=== PATIENT | male | born 1985 | race Caucasian/White ===

== ENCOUNTER 2021-06-17 21:15 | Emergency (ER) | payer OTHER ==
[~2021-06-17] VITALS: Ht 172.7 cm; Wt 81.7 kg
--- NOTE | ~2021-06-17 | EMS ---
[address] [address] EMS Patient Care Report Name: REYNALDO CRUZ Room #: DEP DIANNE Casiano#: [id number] Admission: 06/17/21 Attend Phys: Discharge: 06/18/21 Date of : 85 Report #: [id number] THIS REPORT FOR: //name// Report Transmitted: 06/19/2021 10:16 EMS Care Summary [place], [place]/[facility] Incident [id number] @ 06/17/2021 20:40 Incident Location [address] [place] [address] [place] [address] Patient REYNALDO CRUZ Male, 32 Years 1989-01-20 Patient Address [address] [place] [address] [place] [address] Patient History Asthma,Alcohol Abuse, Patient Allergies No known allergies, Patient Medications None Reported, Chief Complaint AMS Disposition Transported No Lights/[place] Reason Overdose/Poisoning/Ingestion Transported To [facility] [place] Narrative M41 DISPATCHED TO AN OVERDOSE. M41 AOS AND FOUND A MALE PT LYING ON THE FLOOR IN THE KITCHEN. PT WAS FOUND BY HIS WHEN SHE CAME HOME FROM WORK. SHE STATES THAT HE DOES HAVE A DRINKING [address] [address] EMS Patient Care Report Name: REYNALDO CRUZ Room #: DEP DIANNE Casiano#: [id number] Admission: 06/17/21 Attend Phys: Discharge: 06/18/21 Date of : 85 Report #: [id number] PROBLEM BUT HIDES HIS DRINKING, SHE STATES THAT HE ALSO USES WEED BUT DOES NOT THINK THAT HE USES ANY OTHER DRUGS. PT WAS AROUSED AND BECAME ALERT BUT DID NOT ANSWER ANY QUESTIONS AND REPLIES TO ALL QUESTIONS WITH WAS IS UP. PT DOES HAVE MUCUS COMING FROM HIS MOUTH. PT ATTEMPTS TO SPIT UP THE MUCUS BUT IS UNSUCCESSFUL. PT IS ALERT ENOUGH TO MAINTAIN HIS OWN AIRWAY. HX, ALLERGIES, AND MEDS OBTAINED FROM . PT PLACED ON A MEGAMOVER AND MOVED TO THE COT. VITALS OBTAINED. BGA OBTAINED. 4 LEAD OBTAINED. M[address] [facility]. EN ROUTE PT CONDITION REMAINED STABLE HOWEVER HE DOES NOT FOLLOW ANY OF MY REQUESTS PT PLAYS WITH HIS GENITALS AND DROPS HIS EMESIS BAG MULTIPLE TIMES IN THE AMBULANCE. AT [facility] PT URINATED ALL OVER THE COT AND THE FLOOR WITH NO WARNING. REPORT GIVEN TO RN [facility]. SIGNATURES OBTAINED. I SIGNED FOR PT DUE TO AMS. TRANSFER OF CARE TOOK PLACE. M41 IN SERVICE. MAURA VIERA FLIGHT TECHNICIAN Initial Vitals @20:54P: 97,R: 18,BP: 151/99,Pain: 0/10,GCS: 13,CO: 3,SpO2: 96,Revised Trauma: 12, @20:52P: 103,R: 18,BP: 139/94,Pain: 0/10,GCS: 13,Glucose: 115,SpO2: 94,Revised Trauma: 12,MN Suspected: false Assessments @20:50MENTAL:Confused,Other,SKIN:HEENT:Head/Face: No Abnormalities,Neck/Airway: No Abnormalities,LUNG SOUNDS:General: Vomiting,ABDOMEN:General: Vomiting,PELVIS//GI:No Abnormalities,EXTREMITIES:Capillary Refill: Right Upper: < 2 Sec,Left Arm: No Abnormalities,Right Arm: No Abnormalities,Left Leg: No Abnormalities,Right Leg: No Abnormalities,PULSE:Radial: 2+ Normal,NEURO:No Abnormalities, Impression Altered Mental Status Procedures @20:50 ALS Assessment Response: UnchangedSucceeded [facility] [address] [place] [address] EMS Patient Care Report Name: ANTHONYREYNALDO Room #: [facility] DIANNE Casiano#: [id number] Admission: 06/17/21 Attend Phys: Discharge: 06/18/21 Date of : 85 Report #: [id number] @20:54 3-Lead ECG Response: UnchangedSucceeded Timeline 20:36,Call Received 20:36,Dispatch Notified 20:40,Dispatched 20:40,En Route 20:49,On Scene 20:50,At Patient 20:50,ALS Assessment,Response: UnchangedSucceeded, 20:52,BP: 139/94 M,PULSE: 103,RR: 18 R,SPO2: 94 Ox,ETCO2: ,B,PAIN: 0,GCS: 13, 20:54,3-Lead ECG,Response: UnchangedSucceeded, 20:54,BP: 151/99 M,PULSE: 97,RR: 18 R,SPO2: 96 Ox,ETCO2: ,BG: ,PAIN: 0,GCS: 13, 20:57,Depart Scene 21:10,At Destination 21:19,Call Closed Disclaimer v1.1 Copyright 2021 [employer] This EMS Care Summary contains data elements from the applicable legal record (which may be displayed differently). It is designed to provide pertinent information for the following purposes: continuity of care, clinical quality, and state data reporting. The complete legal record is available to ED staff and administrators of the receiving hospital in [employer] Patient Tracker. All data is provided "as is."
[2021-06-17 21:54] LABS: ABSOLUTE NEUTROPHILS 4.6 thou/uL (1.4-8.2); BASOPHILS 0.8 % (0.0-2.0); EOSINOPHILS 0.5 % (0.0-3.0); HEMATOCRIT 52.5 % (42.0-52.0); HEMOGLOBIN 17.2 gm/dL (14.0-18.0); LYMPHOCYTES 32.6 % (24.0-44.0); MCH 31.3 pg (26.0-34.0); MCHC 32.8 g/dL (28.0-37.0); MCV 95.5 fL (80.0-100.0); MONOCYTES 10.5 % (1.0-8.0); PLATELET COUNT 292 thou/uL (150-400); POLYS 55.6 % (36.0-66.0); RDW 14.8 % (10.5-14.5); WBC 8.2 thou/uL (4.0-11.0)
[2021-06-17 22:03] LABS: AMP/METHAMP Negative (Negative); BARBITURATES Negative (Negative); BENZODIAZEPINES Negative (Negative); COCAINE Negative (Negative); METHADONE Negative (Negative); PCP Negative (Negative)
[2021-06-17 22:08] LABS: CALCIUM 9.1 mg/dL (8.5-10.1); CREATININE 0.8 mg/dL (0.7-1.3); POTASSIUM 3.3 mmol/L (3.5-5.1)
[2021-06-17 22:15] LABS: ALBUMIN 4.4 g/dL (3.4-5.0); TOTAL BILIRUBIN 0.4 mg/dL (0.2-1.0); TOTAL PROTEIN 8.5 g/dL (6.4-8.2)
[2021-06-17 22:16] LABS: OPIATES Negative (Negative)
[2021-06-18 10:14] VITALS: BP 100/75
== END 2021-06-18 10:16 | disposition home or self-care (01) ==
LOC: EDBD 21:15 → ER 21:15
PROVIDERS: Emergency Medicine
DX: F10.129 Alcohol abuse with intoxication, unspecified (principal); Z20.822 Contact with and (suspected) exposure to COVID-19; Y90.8 Blood alcohol level of 240 mg/100 ml or more